=== PATIENT | female | born 2000 | race Caucasian/White ===

== ENCOUNTER 2022-08-10 00:57 | Emergency (ER) | payer OTHER ==
[~2022-08-10] VITALS: Ht 167.6 cm; Wt 72.6 kg
[2022-08-10 01:02] VITALS: BP 130/59
--- NOTE | 2022-08-10 02:38 | NUR ---
PT TO BED 07.
--- NOTE | 2022-08-10 02:40 | NUR ---
PT AMBULATED TO ED 7, PT C/O LOWER BACK AND LOWER ABD PAIN. PT WENT TO URGENT CARE AND WAS DX WITH CHYLAMIDIA AND GIVEN ANTIBIOTICS X 1 DOSE. PT STATES PAIN HAS INCREASED AND RADIATES TO HER ABD. PT PLACED IN GOWN AND MONITOR.
[2022-08-10] MEDS ORDERED: KETOROLAC 30 MG/ML VIAL IVP ONE (03:30)
[2022-08-10] MEDS ORDERED: NACL 0.9% 1,000 ML IV ONE (03:30)
[2022-08-10 03:47] LABS: BASOPHILS # (AUTO) 0.1 K/uL (0.00-0.22); EOSINOPHILS # (AUTO) 0.2 K/uL (0-0.4); EOSINOPHILS % (AUTO) 1.9 % (0.0-4.0); HEMATOCRIT 36.1 % (36-48); HEMOGLOBIN 12.5 g/dL (12.0-16.0); LYMPHOCYTES # (AUTO) 4.1 K/uL (2.5-16.5); MEAN CORPUSCULAR HEMOGLOBIN 31 pg (27-31); MEAN CORPUSCULAR HGB CONC 35 g/dL (33-37); MEAN CORPUSCULAR VOLUME 90.2 fL (80-94); MONOCYTES % (AUTO) 8.4 % (1.7-9.3); NEUTROPHILS # (AUTO) 6.3 K/uL (1.8-7.7); NEUTROPHILS % (AUTO) 53.7 % (42.2-75.2); PLATELET COUNT (AUTO) 312 K/uL (140-450); RED BLOOD CELL COUNT(AUTO) 4.01 MIL/uL (4.20-5.40); RED CELL DISTRIBUTION WIDTH 13.1 % (11.6-13.7); WHITE BLOOD COUNT (AUTO) 11.7 K/uL (4.8-10.8)
[2022-08-10 03:52] LABS: APPEARANCE,URINE SL CLOUDY (CLEAR); BILIRUBIN,URINE NEGATIVE (NEGATIVE); BLOOD, URINE 1+ (NEGATIVE); COLOR,URINE YELLOW (YELLOW); LEUKOCYTE ESTERASE ,URINE NEGATIVE (NEGATIVE); NITRITE, URINE NEGATIVE (NEGATIVE); UGLUCOSE NEGATIVE (NEGATIVE)
[2022-08-10 03:57] LABS: RBC,URINE 0-5 /HPF (0-5); WBC,URINE 16-25 (MOD) /HPF (0-5)
--- NOTE | 2022-08-10 04:01 | NUR ---
US AT BEDSIDE
--- NOTE | 2022-08-10 04:25 | NUR ---
Dr. Miller examining patient.
[2022-08-10 04:29] LABS: ALBUMIN 3.6 g/dL (3.4-5.0); CREATININE 0.7 mg/dL (0.6-1.3); POTASSIUM 3.8 mmol/L (3.5-5.1); TOTAL BILIRUBIN 0.2 mg/dL (0.0-1.0)
[2022-08-10 04:35] LABS: ANION GAP 14.6 (8-16)
[2022-08-10] MEDS ORDERED: CIPR500T4 PO (04:36)
[2022-08-10] MEDS ORDERED: ONDA-188 PO (04:36)
[2022-08-10] MEDS ORDERED: IBUP-2213 PO (04:36)
[2022-08-10] MEDS ORDERED: cefTRIAXone 1,000 MG VIAL ONE (04:46)
--- NOTE | 2022-08-10 05:00 | NUR ---
PT STATES PAIN HAS REDUCED AND FEELS ALOT BETTER. IV D/C WITH CATHETER INTACT.
[2022-08-10 05:08] VITALS: BP 128/67
--- NOTE | 2022-08-10 05:11 | NUR ---
Patient discharged with v/s stable. Written and verbal after care instructions given and explained. Patient alert, oriented and verbalized understanding of instructions. Ambulatory with steady gait. All questions addressed prior to discharge. ID band removed. Patient advised to follow up with PMD. Rx SENT TO PHARMACY. Patient educated on indication of medication including possible reaction and side effects. Opportunity to ask questions provided and answered.
== END 2022-08-10 05:07 | disposition home or self-care (01) ==
LOC: MED 00:57
DX: N12 Tubulo-interstitial nephritis, not specified as acute or chronic (principal); M54.50 Low back pain, unspecified; R30.0 Dysuria; R35.0 Frequency of micturition; Z79.899 Other long term (current) drug therapy
CPT/HCPCS: 36415; 76856; 80053; 81001; 81025; 85025; 87086; 87491; 96365; 96375; 99284; J0696; J1885; J7030; Q0092